=== PATIENT | female | born 1990 | race Two or more races ===

== ENCOUNTER 2022-03-04 00:02 | Emergency (ER) | payer MEDICAID, OTHER ==
[~2022-03-04] VITALS: Ht 167.6 cm; Wt 118.4 kg
[2022-03-04 00:02] VITALS: BP 113/68
[2022-03-04] MEDS ORDERED: AZIT500T66 PO (06:31)
[2022-03-04] MEDS ORDERED: PROM1SOL4 PO (06:31)
== END 2022-03-04 06:56 | disposition home or self-care (01) ==
LOC: ER 00:02
DX: J03.90 Acute tonsillitis, unspecified (principal); Z79.2 Long term (current) use of antibiotics; Z79.899 Other long term (current) drug therapy